=== PATIENT | male | born 1985 | race American Indian/Alaskan Native ===

== ENCOUNTER 2016-12-31 13:39 | Emergency (ER) | payer OTHER ==
[2016-12-31] MEDS ORDERED: MORPHINE IM ONE (13:49)
[2016-12-31] MEDS ORDERED: NACL 0.9% IR ONE (13:52)
[2016-12-31] MEDS ORDERED: BOOSTRIX IM ONE (13:52)
[2016-12-31] MEDS ORDERED: XYLOCAINE 2%/ EPI 1:200,000 INFILTRATI ONE (13:52)
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
[2016-12-31] MEDS ORDERED: NACL 0.9% 500 ML IR ONE ×2 (14:08→14:10)
--- NOTE | 2016-12-31 14:38 | XRay Report ---
CHEST ONE VIEW INDICATION: Trauma. COMPARISON: None similar at this institution. FINDINGS: Portable, single, frontal chest radiograph demonstrates normal cardiomediastinal silhouette. Clear lungs. Unremarkable bones. CONCLUSION: No acute disease in the chest. Thank you for the opportunity to participate in this patient's care.
--- NOTE | 2016-12-31 14:39 | XRay Report ---
Left elbow, left forearm: Trauma, soft tissue laceration, pain. There is a deep laceration over the medial condyle of the humerus. There is a question of a small bony avulsion involving the condyle. The joint alignment is unremarkable. There is no joint effusion. There is mild swelling over the dorsum of the forearm with no underlying bone abnormality. Of note is that the distal third of the forearm including the wrist are not included on this exam. Impressions: Soft tissue laceration and possible evulsion involving the medial elbow.
--- NOTE | 2016-12-31 14:48 | Cat Scan Report ---
CT HEAD WITHOUT CONTRAST INDICATION: Trauma. COMPARISON: None similar. FINDINGS: Noncontrast head CT demonstrates normal ventricles and sulci without acute or recent infarct, hemorrhage, mass effect or midline shift. No abnormal extra-axial fluid collections. Posterior fossa structures and basilar cisterns appear within normal limits. Symmetric eye globes. Clear paranasal sinuses and mastoid air cells. Intact calvarium. Normal overlying scalp soft tissues. Few radiopaque dental material incidentally noted. Right external auditory canal debris may be directly visualized. CONCLUSION: No acute intracranial CT abnormality, as described. Thank you for the opportunity to participate in this patient's care.
--- NOTE | 2016-12-31 14:52 | Cat Scan Report ---
CT CERVICAL SPINE WITHOUT CONTRAST INDICATION: Trauma. COMPARISON: None similar. FINDINGS: Noncontrast axial, sagittal and coronal CT reconstructions of the cervical spine demonstrate normal visualized intracranial appearance. Streak artifact from few radiopaque dental material noted. Assessment of the spinal canal from C7 inferiorly also compromised due to artifact from shoulder soft tissues. Clear included sinuses and mastoid air cells. Symmetric occipital condyles. Bony non-fusion of C1 posterior arch. Intact craniocervical articulation with normal predental space, prevertebral soft tissues, vertebral body stature, alignment, disc heights and posterior elements. No large disc protrusion at any level suspected. Normal included thyroid. Biapical emphysematous changes with largest 3 cm bulla on the right. CONCLUSION: No acute cervical spine CT abnormality with biapical emphysematous changes, as above. Please correlate. Thank you for the opportunity to participate in this patient's care.
[2016-12-31] MEDS ORDERED: ANCEF/NS 1 GM/50 ML 1 GM/50 ML BAG IV ONE (15:38)
[2016-12-31] MEDS ORDERED: TRIPLE ANTIBIOTIC TP ONE (15:39)
[2016-12-31 15:41] LABS: Bacteria,Urine 1+ /HPF (Negative); Bilirubin,Urine NEG (Negative); Blood,Urine NEG (Negative); Ketones,Urine NEG (Negative); Leukocyte Esterase,Urine NEG (Negative); Mucus,Urine FEW /HPF; Nitrite,Urine NEG (Negative); Protein,Urine <15 mg/dL mg/dL (Negative); Urobilinogen,Urine < 2.0 mg/dL (<2.0); WBC,Urine < 1.0 /HPF (0.0-6.0)
[2016-12-31] MEDS ORDERED: BACITRACIN (ED) OINT PACKET TP ONE (15:45)
[2016-12-31 17:04] VITALS: BP 116/62
== END 2016-12-31 17:03 | disposition home or self-care (01) ==
LOC: ED 13:39
DX: S01.111A Laceration without foreign body of right eyelid and periocular area, initial encounter (principal); S51.012A Laceration without foreign body of left elbow, initial encounter; F17.200 Nicotine dependence, unspecified, uncomplicated; V49.49XA Driver injured in collision with other motor vehicles in traffic accident, initial encounter; W22.11XA Striking against or struck by driver side automobile airbag, initial encounter; Y93.89 Activity, other specified; Y99.9 Unspecified external cause status; Y92.410 Unspecified street and highway as the place of occurrence of the external cause
CPT/HCPCS: 12011; 12032; 70450; 71010; 72125; 73070; 73090; 81001; 90471; 90715; 96365; 96372; 99285; J0690; J2270; A6250

== ENCOUNTER 2019-01-03 12:17 | Emergency (ER) | payer OTHER ==
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
[2019-01-03 12:42] VITALS: BP 110/76
[2019-01-03] MEDS ORDERED: XYLOCAINE 1%/ EPI 1:100,000 INFILTRATI ONE (14:36)
--- NOTE | 2019-01-03 14:37 | Cat Scan Report ---
CT HEAD WITHOUT CONTRAST INDICATION: Headache. COMPARISON: 12/31/2016. FINDINGS: Noncontrast head CT somewhat limited due to artifact, though again demonstrates normal ventricles and sulci without acute or recent infarct, hemorrhage, mass effect or midline shift. No abnormal extra-axial fluid collections. Posterior fossa structures and basilar cisterns within normal limits. Symmetric eye globes. Mild left maxillary and right ethmoid sinus mucosal thickening. Minimal right maxillary sinus mucosal thickening may also be present. Clear remainder imaged paranasal sinuses and mastoid air cells. Approximately 2-3 mm leftward nasal septal spur noted. Intact calvarium. Normal overlying scalp soft tissues. Multiple radiopaque dental material incidentally noted. CONCLUSION: No acute intracranial CT abnormality with mild sinusitis noted, as described. Thank you for the opportunity to participate in this patient's care.
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
== END 2019-01-03 15:35 | disposition home or self-care (01) ==
LOC: ED 12:17
DX: S01.112A Laceration without foreign body of left eyelid and periocular area, initial encounter (principal); Y04.0XXA Assault by unarmed brawl or fight, initial encounter; Y93.89 Activity, other specified; Y92.89 Other specified places as the place of occurrence of the external cause; Y99.8 Other external cause status
CPT/HCPCS: 70450